=== PATIENT | male | born 1930 | race Caucasian/White ===

== ENCOUNTER → 2016-05-25 | Outpatient (CLI) | payer MEDICARE ==
[~2016-05-25] MED LIST: ASPIRIN81 M1 PO; ATIVAN2 MG PO; AVODART0.5 MG PO; FLOMAX0.4 MG PO; LISINOPRIL5 MG PO; METOPROLOL25 MG PO; MIRALAX17 GM/DOSE PO; NORCO 5-325 TA1 EACH PO; PREDNICOT20 MG PO; PRILOSEC20 MG PO; SIMVASTATIN20 MG PO; ULTRAM50 MG PO; VIBRAMYCIN100 MG PO
== END | disposition home or self-care (01) ==
LOC: CT 02:53
DX: K46.9 Unspecified abdominal hernia without obstruction or gangrene (principal); K76.89 Other specified diseases of liver; K86.1 Other chronic pancreatitis; K57.90 Diverticulosis of intestine, part unspecified, without perforation or abscess without bleeding; R10.31 Right lower quadrant pain; R11.0 Nausea; Z90.49 Acquired absence of other specified parts of digestive tract

== ENCOUNTER → 2016-07-24 | Day surgery (SDC) | payer MEDICARE, MEDICAID ==
[2016-07-20 13:43] LABS: BASO % 0.3 % (0.0-1.0); EOS # 0.1 10*3/uL (0.0-0.4); EOS % 1.3 % (1.0-4.0); HEMOGLOBIN 14.9 g/dl (14.0-18.0); LYMPH # 2.2 10*3/uL (1.3-4.4); LYMPH % 23.6 % (27.0-41.0); MEAN CELL VOLUME 89.4 fl (80.0-94.0); MEAN CORPUSCULAR HGB 30.3 pg (27.0-31.0); MEAN CORPUSCULAR HGB CONC 33.9 g/dl (33.0-37.0); MEAN PLATELET VOLUME 9.3 fl (9.6-12.3); MONO # 1.1 10*3/uL (0.1-1.0); MONO % 11.7 % (3.0-9.0); NEUT # 5.9 10*3/uL (2.3-7.9); NEUT % 62.9 % (47.0-73.0); PLATELET COUNT AUTOMATED 221 10*3/uL (130-400); RED BLOOD COUNT 4.92 10*6/uL (4.50-5.90); RED CELL DISTRI WIDTH 13.5 % (0-14.5); WHITE BLOOD COUNT 9.4 10*3/uL (4.8-10.8)
[2016-07-20 13:46] LABS: BILIRUBIN NEGATIVE (NEGATIVE); BLOOD TRACE-LYSED (NEGATIVE); CLARITY CLEAR (CLEAR); COLOR YELLOW (YELLOW); GLUCOSE NEGATIVE (NEGATIVE); KETONE NEGATIVE (NEGATIVE); LEUKO ESTERASE NEGATIVE (NEGATIVE); NITRITE NEGATIVE (NEGATIVE); PROTEIN NEGATIVE (NEGATIVE); SPECIFIC GRAVITY <= 1.005 (1.005-1.030); UROBILINOGEN 0.2 E.U./dl (0.2-1.0)
[2016-07-20 14:11] LABS: WBC 0-2 wbc/hpf (0-5)
[2016-07-20 14:13] LABS: PROTHROMBIN TIME 10.7 SECONDS (9.0-12.4)
[2016-07-20 14:14] LABS: BUN 9 mg/dl (7-24); CARBON DIOXIDE 25 mmol/L (21-32); CHLORIDE 103 mmol/L (98-107); EST GLOM FILT AFRICAN AMERICAN > 60 ml/min; GLUCOSE 101 mg/dL (65-99); POTASSIUM 4.4 mmol/L (3.5-5.1); SODIUM 139 mmol/L (136-145)
[~2016-07-24] VITALS: Ht 187.9 cm; Wt 95.3 kg
--- NOTE | ~2016-07-24 | O ---
[place], [place] OPERATIVE NOTE NAME: LA OLIVEIRA [facility] #: [id number] UNIT #: [id number] ROOM: DOCTOR: SHADI SANTACRUZ MD BIRTHDATE: [birth year] DOS: 07/24/2016 PREOPERATIVE DIAGNOSES: Recurrent right inguinal hernia, umbilical hernia. POSTOPERATIVE DIAGNOSES: Recurrent right inguinal hernia, umbilical hernia. PROCEDURE: Repair of recurrent right inguinal hernia with mesh (3 x 6 cm, lite), umbilical hernia repair (primary). SURGEON: Shadi Santacruz MD IRRIGATIONIST: LUCHO. ANESTHESIA: General. INDICATIONS: This is an 86-year-old gentleman who has a history of recurrent right inguinal hernia as well as symptomatic umbilical hernia who is here for the above-mentioned procedure. The procedure and its complications were explained to the patient in detail preoperatively. Complications that were discussed included but were not limited to bleeding, infection, hematoma/seroma/abscess formation, prolonged postoperative pain, recurrence and damage to underlying vital structures, agreed to proceed. DESCRIPTION OF PROCEDURE: After identifying the patient, the patient was brought to the operating suite and laid in the supine position. After induction of general anesthesia, timeout procedure was called and the parts were then painted and draped in the usual sterile fashion. It was decided to proceed with a right inguinal hernia. First an incision that was made for a previous right inguinal hernia repair was used at this time around as well. The skin and the subcutaneous tissue were incised in the line of the incision. The external oblique aponeurosis, which was found to be extremely attenuated, was incised as well. The cord structures were identified and encircled with the help of a [place] drain. 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 Thereafter, the mesh which was fashioned to fit the right inguinal region was brought in. This was a lite Prolene mesh. It was cut to size and encircled around the cord. It was sutured to the conjoined tendon superiorly and to the upturned part of the inguinal ligament inferiorly with the help of 2-0 Prolene in a running fashion. Thereafter, the cord structures allowed to settle back into the floor of the inguinal canal and the external oblique aponeurosis was approximated with the help of 3-0 Vicryl in a running fashion. The subcutaneous tissue was approximated with the help of 3-0 Vicryl in a running fashion. The skin edges were approximated with the help of 4-0 Vicryl in a subcuticular running fashion. The edges of the skin were infiltrated with local anesthesia (1% plain lidocaine). Attention was turned towards the umbilical region. Inferior incision was made in a curvilinear fashion. The skin and the subcutaneous tissue were incised. The hernial sac was incised and the contents of the hernial sac, which were found to be omentum were allowed to retract back after there were freed from the surrounding sac. The hernial defect was found to be [address] [place], [place] OPERATIVE NOTE NAME: LA OLIVEIRA UNIT #: [id number] ROOM: DOCTOR: SHADI SANTACRUZ MD BIRTHDATE: [birth year] cm in diameter. A decision was made to do a primary repair. This was done by approximating the fascial edges with the help of 0 PDS in an interrupted fashion. The subcutaneous tissue was then approximated with the help of 3-0 Vicryl in a running fashion. The edges of the skin were approximated with the help of 4-0 Vicryl in a subcuticular fashion after they were infiltrated with local anesthesia (1% plain lidocaine). Dressings were placed to both the incisions. The patient tolerated the procedure well and was extubated and brought back to the recovery room in stable fashion. There were no complications. Dr. Shadi Santacruz, the attending surgeon, was present throughout the operating case. Shadi Santacruz MD CM:OPRECORD:OPERATIVE NOTE [id number] SHADI SANTACRUZ MD 07/24/16 1026 interface
== END | disposition home or self-care (01) ==
LOC: SDC 07-20 12:30
PROVIDERS: Surgery
DX: K40.91 Unilateral inguinal hernia, without obstruction or gangrene, recurrent (principal); K42.9 Umbilical hernia without obstruction or gangrene; D17.6 Benign lipomatous neoplasm of spermatic cord; Z87.891 Personal history of nicotine dependence; I25.10 Atherosclerotic heart disease of native coronary artery without angina pectoris; I25.2 Old myocardial infarction; I10 Essential (primary) hypertension; J44.9 Chronic obstructive pulmonary disease, unspecified; K21.9 Gastro-esophageal reflux disease without esophagitis; Z87.01 Personal history of pneumonia (recurrent); Z85.46 Personal history of malignant neoplasm of prostate; Z85.828 Personal history of other malignant neoplasm of skin; Z82.49 Family history of ischemic heart disease and other diseases of the circulatory system

== ENCOUNTER 2016-07-26 19:59 | Emergency (ER) | payer MEDICARE, MEDICAID ==
[~2016-07-26] VITALS: Wt 93.0 kg
[~2016-07-26 19:59] MED LIST changes: -ULTRAM50 MG PO
[2016-07-26 20:55] LABS: HEMATOCRIT 43.1 % (42.0-52.0); HEMOGLOBIN 14.6 g/dl (14.0-18.0); MEAN CORPUSCULAR HGB 29.8 pg (27.0-31.0); MEAN CORPUSCULAR HGB CONC 33.9 g/dl (33.0-37.0); MEAN PLATELET VOLUME 9.2 fl (9.6-12.3); PLATELET COUNT AUTOMATED 232 10*3/uL (130-400); RED CELL DISTRI WIDTH 13.4 % (0-14.5); WHITE BLOOD COUNT 12.2 10*3/uL (4.8-10.8)
[2016-07-26 21:12] LABS: BUN 11 mg/dl (7-24); CARBON DIOXIDE 21 mmol/L (21-32); CHLORIDE 103 mmol/L (98-107); EST GLOM FILT AFRICAN AMERICAN > 60 ml/min; GLUCOSE 118 mg/dL (65-99); POTASSIUM 3.8 mmol/L (3.5-5.1); SODIUM 138 mmol/L (136-145)
[2016-07-26 21:14] LABS: EOSINOPHIL # 0.7 10*3/uL (0-0.4); EOSINOPHILS 6 % (1-4); LYMPHOCYTE # 2.3 10*3/uL (1.3-4.4); NEUTROPHIL # 7.2 10*3/uL (2.3-7.9); NEUTROPHILS 59 % (47-73); PLATELET SUFFICIENCY NORMAL (NORMAL); TOTAL CELLS COUNTED 100 #CELLS
[2016-07-26 21:15] LABS: TROPONIN I < 0.015 ng/ml (<0.045)
[2016-07-26 22:26] LABS: BILIRUBIN NEGATIVE (NEGATIVE); BLOOD TRACE-INTACT (NEGATIVE); CLARITY CLEAR (CLEAR); COLOR YELLOW (YELLOW); GLUCOSE NEGATIVE (NEGATIVE); KETONE NEGATIVE (NEGATIVE); LEUKO ESTERASE NEGATIVE (NEGATIVE); NITRITE NEGATIVE (NEGATIVE); PROTEIN NEGATIVE (NEGATIVE); SPECIFIC GRAVITY <= 1.005 (1.005-1.030); UROBILINOGEN 0.2 E.U./dl (0.2-1.0)
[2016-07-26 22:36] LABS: EPITHELIAL CELLS 0-2; WBC 0-2 wbc/hpf (0-5)
[2016-07-26 22:37] LABS: BACTERIA TRACE; URINE REFLEX COMMENT NO (NO)
[2016-07-26] MEDS ORDERED: ULTRAM50 MG PO (23:15)
== END 2016-07-26 23:34 | disposition home or self-care (01) ==
LOC: ED 19:59
PROVIDERS: Emergency Medicine Emergency Medical Services
DX: G89.18 Other acute postprocedural pain (principal); N49.2 Inflammatory disorders of scrotum; Z79.82 Long term (current) use of aspirin; Z79.899 Other long term (current) drug therapy; Z91.041 Radiographic dye allergy status

== ENCOUNTER → 2016-08-16 | Outpatient (CLI) | payer MEDICARE, MEDICAID ==
[~2016-08-16] MED LIST changes: +ULTRAM50 MG PO
== END | disposition home or self-care (01) ==
LOC: NM 10:32
DX: C61 Malignant neoplasm of prostate (principal); M25.551 Pain in right hip; M25.552 Pain in left hip

== ENCOUNTER 2017-03-22 17:01 | Emergency (ER) | payer MEDICARE, OTHER ==
[~2017-03-22] VITALS: Wt 90.7 kg
[2017-03-22] MEDS ORDERED: KEFLEX500 M1 PO (17:37)
[2017-03-22] MEDS ORDERED: Bactroban Oint22 GM T (17:37)
[2017-03-22] MEDS ORDERED: Bactrim DS PO (17:37)
== END 2017-03-22 17:52 | disposition home or self-care (01) ==
LOC: ED 17:01
DX: L02.414 Cutaneous abscess of left upper limb (principal); R03.0 Elevated blood-pressure reading, without diagnosis of hypertension; Z91.041 Radiographic dye allergy status; Z79.82 Long term (current) use of aspirin; Z79.899 Other long term (current) drug therapy

== ENCOUNTER → 2017-08-08 | Outpatient (CLI) | payer MEDICARE, OTHER ==
[~2017-08-08] MED LIST changes: +Bactrim DS PO; +Bactroban Oint22 GM T; +KEFLEX500 M1 PO
== END | disposition home or self-care (01) ==
LOC: NM 06:56
DX: C61 Malignant neoplasm of prostate (principal)

== ENCOUNTER → 2017-09-11 | Outpatient (CLI) | payer MEDICARE, OTHER | END | disposition home or self-care (01) | LOC: CT 09-07 01:56 | DX: K57.30 Diverticulosis of large intestine without perforation or abscess without bleeding (principal); K76.9 Liver disease, unspecified; C79.51 Secondary malignant neoplasm of bone; Z85.46 Personal history of malignant neoplasm of prostate; Z90.49 Acquired absence of other specified parts of digestive tract ==

== ENCOUNTER → 2017-10-12 | Outpatient (CLI) | payer MEDICARE, OTHER ==
[2017-10-12 10:39] LABS: BUN 6 mg/dl (7-24); CHLORIDE 102 mmol/L (98-107); CREATININE 0.71 mg/dL (0.70-1.30); POTASSIUM 4.1 mmol/L (3.5-5.1); SODIUM 135 mmol/L (136-145)
== END | disposition home or self-care (01) ==
LOC: LAB 09:26
DX: K42.9 Umbilical hernia without obstruction or gangrene (principal); R94.31 Abnormal electrocardiogram [ECG] [EKG]

== ENCOUNTER → 2018-04-11 | Outpatient (CLI) | payer MEDICARE, OTHER | END | disposition home or self-care (01) | LOC: CT 04-10 02:00 | DX: Z51.11 Encounter for antineoplastic chemotherapy (principal); C61 Malignant neoplasm of prostate; C79.9 Secondary malignant neoplasm of unspecified site; R91.1 Solitary pulmonary nodule; K76.89 Other specified diseases of liver; K57.30 Diverticulosis of large intestine without perforation or abscess without bleeding; K86.1 Other chronic pancreatitis; Z90.49 Acquired absence of other specified parts of digestive tract; Z79.818 Long term (current) use of other agents affecting estrogen receptors and estrogen levels ==

== ENCOUNTER → 2019-04-10 | Outpatient (CLI) | payer MEDICARE, OTHER ==
[~2019-04-10] MED LIST changes: +ABIRATERONE AC250 MG PO; +ALDACTONE25 MG PO; +IMDUR SA30 MG PO; +LISINOPRIL20 MG PO; +LOSARTAN POTASS25 M1 PO; +METOPROLOL SUCC25 M2 PO; +METOPROLOL SUCC50 M1 PO; +MIRTAZAPINE15 M2 PO; +PACERONE200 MG PO; +PREDNISONE5 MG PO; +TAMSULOSIN HCL0.4 MG PO; +TRAMADOL HCL50 MG PO; +VITAMIN D32000 UNI1 PO; +[UNRECOGNIZED DRUG - REMARK]
== END | disposition home or self-care (01) ==
LOC: CT 04-09 09:00 → NM 04-09 10:00 → CT 04-09 10:00
DX: Z51.11 Encounter for antineoplastic chemotherapy (principal); I25.10 Atherosclerotic heart disease of native coronary artery without angina pectoris; J84.10 Pulmonary fibrosis, unspecified; C79.51 Secondary malignant neoplasm of bone; I21.9 Acute myocardial infarction, unspecified